=== PATIENT | female | born 1960 | race Caucasian/White ===

== ENCOUNTER → 2018-06-29 | Outpatient (CLI) | payer OTHER ==
--- NOTE | 2018-06-29 16:15 | RAD ---
EXAM DESCRIPTION: Hand,Left 3 Views CLINICAL HISTORY: 58 years Female, M79.642, M79.645 COMPARISON: None. TECHNIQUE: 3 views of the left hand. IMPRESSION: No acute displaced fracture. No dislocation. Moderate arthropathy predominantly along the PIP and DIP joints. No suspicious sclerotic or lucent lesion. The visualized carpal and metacarpal bones maintain normal anatomic alignment. No radiographically apparent soft tissue abnormality. Bones appear osteopenic. Consider DEXA scan to assess for fracture risk if not already performed. Electronically signed by: Tai Cherry MD 06/29/2018 4:11 PM CDT
== END ==
LOC: RAD 09:29
PROVIDERS: ATTEND Orthopaedic Surgery
DX: M12.842 Other specific arthropathies, not elsewhere classified, left hand (principal)